=== PATIENT | male | born 2000 | race Caucasian/White ===

== ENCOUNTER 2019-11-06 14:10 | Emergency (ER) | payer OTHER, SELFPAY ==
[2019-11-06 14:11] VITALS: BP 153/87; PULSE 80; RESP 18; TEMP 36.6; O2SAT 98
--- NOTE | 2019-11-06 14:28 | ED.ALLEREA ---
HPI - Allergic Reaction General Chief complaint: Allergic Reaction Stated complaint: allergic reaction Time Seen by Provider: 11/06/19 14:23 Source: patient and RN notes reviewed Mode of arrival: ambulatory Limitations: no limitations History of Present Illness HPI narrative: Pt is a 19 y/o male presenting to the ED c/o allergic reaction. Pt reports he ate a protein bar for the first time and started experiencing SOB, tongue swelling, and facial redness about 10 minutes after at 1330 today. Pt states his Sx's have alleviated gradually, and pt's mother states he took 2 Benadryl prior to presenting to the ED. Pt denies hives, N/V, or diarrhea. Pt states he has not had contact with any new soaps, lotions, or detergents, and notes he does not have a Hx of any known food allergies. Onset (ago): hour(s) (1) Exposure: food (Protein bar) Symptoms: rash (Facial erythema), difficulty breathing and tongue swelling Treatment prior to arrival: benadryl Related Data Allergies Allergy/AdvReac Type Severity Reaction Status Date / Time No Known Allergies Allergy Unverified 09/16/14 16:23 Review of Systems Review of Systems: Narrative: ENT: Reports tongue swelling. RESPIRATORY: Reports dyspnea. GASTROINTESTINAL: Denies nausea, vomiting, or diarrhea. SKIN: Reports facial erythema. Denies hives. All systems reviewed & are unremarkable except as noted in HPI and below PMFSH Past Medical History Medical History No significant past medical history Surgical History Surgical History H/O myringotomy Social History Social History Smoking status: Unknown if ever smoked Gender identity (if verbalized by the patient): Male Exam Narrative: Exam Narrative: GENERAL: Well-appearing, well-nourished, and in no acute distress. HEAD: Normocephalic, atraumatic. EYES: PERRLA and EOMI. ENT: Nares clear, no rhinorrhea or epistaxis. Mucous membranes moist. Throat normal. Uvula midline. NECK: Supple. CHEST: Clear to auscultation. No respiratory distress. No wheezing. HEART: Regular rate and rhythm. No murmur heard. Normal peripheral pulses. ABDOMEN: Soft, nontender, nondistended, normal active bowel sounds. EXTREMITIES: Normal range of motion. No edema. No uritcaria. SKIN: Warm, dry, no rash. No urticaria NEURO: No focal deficits. Alert and oriented. Course Course Emergency Course: Patient presented for evaluation of allergic reaction. At the time of initial assessment, ABCs are intact and vital signs are stable. Physical exam shows no urticaria, no wheezing, no nausea or vomiting. No 2 system involvement that would be concerning for anaphylaxis. In fact, most the patient's symptoms did resolve with taking some Zyrtec patient was monitored in the ER and had no recurrent symptoms requiring epinephrine injection. He did well with steroids, Benadryl, famotidine. Patient was advised that this was likely a allergic reaction, and he will need follow-up with his primary care provider and possible allergy testing. We will discharge him home with medication for symptom management as well as epinephrine autoinjector to use as needed. Patient and family were updated, he was discharged home in stable condition. Vital Signs Vital signs: Vital Signs Temperature 36.6 C 11/06/19 14:11 Pulse Rate 80 11/06/19 14:11 Respiratory Rate 18 11/06/19 14:11 Blood Pressure 153/87 H 11/06/19 14:11 Pulse Oximetry 98 11/06/19 14:11 Temperature 36.6 C 11/06/19 14:11 Pulse Rate 80 11/06/19 14:11 Respiratory Rate 18 11/06/19 14:11 Blood Pressure 153/87 H 11/06/19 14:11 Pulse Oximetry 98 11/06/19 14:11 Discharge Plan Discharge Clinical Impression: Allergic reaction Qualifiers: Encounter type: initial encounter Qualified Code(s): T78.40XA - Allergy, unspecified, initial encounter Patient Disposition: Home, [place]
[2019-11-06] MEDS: FAMOTIDINE 20 MG/2 ML VIAL IV PUSH (15:05)
[2019-11-06 17:57] VITALS: BP 110/80; PULSE 84; RESP 20; O2SAT 97
== END 2019-11-06 17:59 | disposition home or self-care (01) ==
PROVIDERS: Emergency Provider Emergency Medicine; PCP Pediatrics Adolescent Medicine
DX: T78.40XA Allergy, unspecified, initial encounter (principal)
CPT/HCPCS: 96374; 96375; 99284; J1100; J1200

== ENCOUNTER 2021-09-28 20:32 | Emergency (ER) | payer OTHER, SELFPAY ==
[2021-09-28 20:48] VITALS: BP 149/111; PULSE 78; RESP 18; TEMP 36.9; O2SAT 98
--- NOTE | 2021-09-28 21:33 | PC.NURSE ---
Addendum entered by Grecia Orosco RN 09/28/21 21:35: time of 2119 when pt left the ER Original Note: Pt stated that he thinks that Benadryl had finally started working and all of the symptoms were now gone, denies any swelling to throat or tongue. states he will follow up with PCP for Rx for EpiPen on Friday.
== END 2021-09-28 21:33 | disposition left against medical advice (07) ==
LOC: ANHED 21:40
PROVIDERS: PCP Pediatrics Adolescent Medicine
DX: Z53.21 Procedure and treatment not carried out due to patient leaving prior to being seen by health care provider (principal)
CPT/HCPCS: 99199